=== PATIENT | male | born 1945 | race Caucasian/White ===

== ENCOUNTER 2017-03-24 04:18 | Emergency (ER) | payer MEDICARE ==
[2017-03-24 04:31] VITALS: O2SAT 96
[2017-03-24] MEDS ORDERED: XYLOCAINE 2% Uro-Jet TOP ONE (04:32)
[2017-03-24] MEDS ORDERED: XYLOCAINE 2% Uro-Jet ONE (04:33)
[2017-03-24 04:55] LABS: Bilirubin NEGATIVE (NEGATIVE); Blood TRACE NON-HEM Ery/ul (0-5); COMPLETE URINE MICROSCOPIC? YES; Collection Type CATH; Glucose NEGATIVE (NEGATIVE); Leukocyte Esterase NEGATIVE (NEGATIVE)
[2017-03-24 05:02] LABS: ADD URINE CULTURE? NO (NO)
--- NOTE | 2017-03-24 05:27 | ERPHSYRPT ---
- History of Present Illness Time Seen by Provider: 03/24/17 04:22 Source: patient, family () Exam Limitations: no limitations Patient Subjective Stated Complaint: unable to urinate since 2200 last night. Triage Nursing Assessment: abdomen soft.. non tender. no disteneded bladder palpated. Physician History: FOR THE PAST 6.5 HOURS PT HAS BEEN UNABLE TO URINATE; DENIES CHEST PAIN, SHORTNESS OF AIR, VOMITING, FEVER. Allergies/Adverse Reactions: No Known Drug Allergies Allergy (Unverified 03/24/17 04:43) Home Medications: Paroxetine HCl 20 mg [Paxil 20 MG] 20 mg PO DAILY 03/24/17 [History] Immunizations Up to Date: Yes - Past Medical History Pertinent Past Medical History: Yes Neurological History: Other - Past Surgical History Past Surgical History: No - Social History Smoking Status: Never smoker Drug Use: none Patient Lives Alone: Yes - Review of Systems Constitutional: No Fever Respiratory: No Dyspnea Cardiac: No Chest Pain Abdominal/Gastrointestinal: No Vomiting Genitourinary Symptoms: Urinary Retention All Other Systems: Reviewed and Negative - Nursing Vital Signs Nursing Vital Signs: Initial Vital Signs Pulse Rate 66 03/24/17 04:21 Respiratory Rate 20 03/24/17 04:21 Blood Pressure 167/100 03/24/17 04:21 O2 Sat by Pulse Oximetry 96 03/24/17 04:21 Pain Scale Pain Intensity 5 - Physical Exam General Appearance: alert Eye Exam: PERRL/EOMI Ears, Nose, Throat Exam: pharynx normal Neck Exam: normal inspection Respiratory Exam: lungs clear Cardiovascular Exam: normal heart sounds Gastrointestinal/Abdomen Exam: soft, normal bowel sounds, No tenderness Back Exam: normal range of motion Extremity Exam: normal inspection, No pedal edema Neurologic Exam: alert, cooperative Skin Exam: warm, dry SpO2 Interpretation: normal SpO2: 96 Oxygen Delivery: Room Air - Course Nursing assessment & vital signs reviewed: Yes Ordered Tests: Active Orders 24 hr Category Date Time Status Catheter-[place] [facility] [place] STAT Care 03/24/17 04:25 Active UA W/ MICROSCOPIC Stat Lab 03/24/17 04:42 Completed Medication Summary Discontinued Medications Generic Name Dose Route Start Last Admin Trade Name Freq PRN Reason Stop Dose Admin Lidocaine HCl 200 mg 03/24/17 04:32 03/24/17 04:44 Xylocaine 2% Uro-Jet TOP 03/24/17 04:33 200 mg STAT ONE Administration Lidocaine HCl Confirm 03/24/17 04:33 Xylocaine 2% Uro-Jet Administered 03/24/17 04:34 Dose 200 mg .ROUTE .STK-MED ONE Lab/Rad Data: Laboratory Results 03/24/17 Range/Units 04:42 Ur Collection Type CATH Urine Color YELLOW (YELLOW) Urine Appearance CLEAR (CLEAR) Urine pH 5.0 (5-6) Ur Specific [place] 1.025 (1.005-1.025) Urine Protein NEGATIVE (Negative) Urine Ketones NEGATIVE (NEGATIVE) Urine Blood TRACE NON-HEM (0-5) Juvenal/ul Urine Nitrite NEGATIVE (NEGATIVE) Urine Bilirubin NEGATIVE (NEGATIVE) Urine Urobilinogen NORMAL (0-1) mg/dL Ur Leukocyte Esterase NEGATIVE (NEGATIVE) Urine Microscopic RBC 0-2 (0-2) /HPF Urine Glucose NEGATIVE (NEGATIVE) mg/dL Specimen Received 03-24-17 0455 - Departure Time of Disposition: 05:33 Departure Disposition: Home Clinical Impression: ACUTE URINARY RETENTION Condition: Stable Critical Care Time: No Instructions: Urinary Retention in Men Additional Instructions: FOLLOW UP WITH PRIVATE DOCTOR TOMORROW. FOLLOW UP WITH DR LEWIS(UROLOGIST): CALL [phone] TODAY FOR AN APPOINTMENT. KEEP CATHETER IN WITH LEG BAG UNTIL DR LEWIS IS SEEN.
[2017-03-24 05:38] VITALS: BP 146/85; PULSE 63
== END 2017-03-24 05:56 | disposition home or self-care (01) ==
LOC: ED 04:18
DX: R33.9 Retention of urine, unspecified (principal)
CPT/HCPCS: 51702; 81000; 99284

== ENCOUNTER 2017-03-24 09:00 | Emergency (ER) | payer MEDICARE ==
[2017-03-24] MEDS ORDERED: Sodium Chloride 0.9% 1000 ML 1,000 ML IV SCH (09:15)
--- NOTE | 2017-03-24 09:24 | ERPHSYRPT ---
- History of Present Illness Time Seen by Provider: 03/24/17 09:06 Source: patient, family Exam Limitations: clinical condition (confused) Physician History: patient here last pm for acute urinary retention after being started on Paxil yesterday; took first dose last pm; in ER early am; bhatti anchored for retention and went home with bhatti; got up this am and felt poorly and unsteady on feet; started to bathroom and went down; witnessed; ? loc brief; no seizure; amnestic for event; became pale and diaphoretic; no prior hx; no CP; some heaviness and sob; no cough; no fevr; no travel; no exposure; Witnessed: by family Prior Episodes: single episode today Timing/Duration: today, hour(s) (1), sudden, improved (slightly) Precipitating Factors: unknown (possible new meds and or bhatti cath), lightheadedness Context: standing Loss of Consciousness: brief (seconds) Charcter of event(s): collapsed, confused after event Allergies/Adverse Reactions: No Known Drug Allergies Allergy (Unverified 03/24/17 04:43) Home Medications: Paroxetine HCl 20 mg [Paxil 20 MG] 20 mg PO DAILY 03/24/17 [History] - Past Medical History Pertinent Past Medical History: Yes Neurological History: Other Cardiac History: High Cholesterol, Hypertension History: Other (acute urinary retention last pm) - Past Surgical History Past Surgical History: No - Social History Smoking Status: Never smoker Exposure to second hand smoke: No Alcohol Use: Socially Drug Use: none Patient Lives Alone: Yes Significant Family History: hypertension - Review of Systems Constitutional: Weakness, No Fever, No Night Sweats Eyes: No Symptoms Ears, Nose, & Throat: No Symptoms Respiratory: No Cough, No Cyanosis, No Dyspnea, No Wheezing Cardiac: Syncope (possible brief), No Chest Pain, No Edema, No Palpitations Abdominal/Gastrointestinal: No Abdominal Pain, No Nausea, No Vomiting, No Diarrhea Genitourinary Symptoms: Urinary Retention, No Dysuria, No Hematuria, No Flank Pain Skin: Other (diaphoretic during event), No Cellulitis, No Rash Neurological: Headache, No Focal Weakness, No Paralysis, No Seizure, No Sensory Changes, No Vertigo Psychological: No Symptoms Endocrine: No Symptoms Hematologic/Lymphatic: No Symptoms Immunological/Allergic: No Symptoms Physical Exam - Nursing Vital Signs Nursing Vital Signs: Initial Vital Signs Temperature 97.3 F 03/24/17 09:05 Pulse Rate 56 L 03/24/17 09:05 Respiratory Rate 17 03/24/17 09:05 Blood Pressure 154/63 03/24/17 09:05 O2 Sat by Pulse Oximetry 96 03/24/17 09:05 Pain Scale Pain Intensity 0 - Hollis Coma Scale Best Eye Response (Hollis): (4) open spontaneously Best Verbal Response (Sammi): (5) oriented Best Motor Response (Sammi): (6) obeys commands Sammi Total: 15 - Physical Exam General Appearance: moderate distress, lethargy Eye Exam: bilateral eye: normal inspection, PERRL, EOMI, other (fundi benign; no papiledema) Ears, Nose, Throat Exam: normal ENT inspection, TMs normal, pharynx normal, moist mucous membranes Neck Exam: normal inspection, non-tender, supple, full range of motion, No meningismus, No carotid bruit, No JVD Respiratory: lungs clear, airway intact, diminished breath sounds, No chest tenderness, No respiratory distress, No crackles/rales, No rhonchi, No wheezing Cardiovascular: regular rate/rhythm, normal heart sounds, normal peripheral pulses, bradycardia (54), capillary refill <2 sec, No murmur, No edema, No pulse deficit Gastrointestinal: soft, normal bowel sounds, No tenderness, No mass, No guarding , No pulsatile mass, No rebound, No organomegaly Male Genitalia: other (bhatti cath in place draining urine - good output), No hernia, No testicular tenderness Rectal Exam: deferred Back Exam: normal inspection, normal range of motion, No CVA tenderness Extremity Exam: normal inspection, normal range of motion, No elmo's sign, No pedal edema Peripheral Pulses: carotid (R): 4+, carotid (L): 4+, femoral (R): 4+, femoral (L ): 4+, dorsalis-pedis (R): 3+, dorsalis-pedis (L): 3+ 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, oriented x 3, cooperative, 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 Exam: normal hearing, normal speech, PERRL, tongue midline Motor/Sensory: no motor deficit, no sensory deficit Skin Exam: warm, No normal color (pale), No dry (slightly clammy), No rash, No petechiae, No cyanosis SpO2 Interpretation: normal SpO2: 100 Oxygen Delivery: Room Air - Course Nursing assessment & vital signs reviewed: Yes EKG Interpreted by Me: RATE (54), Sinus Feroz, Left Peel Deviation, NORMAL INTERVALS, NORMAL QRS, NORMAL ST-T Rhythm Strip: Rate (54), Sinus Bradycardia - Radiology Exams Chest X-ray Interpretation: Interpreted by me, Teleradiologist Report, No Pneumonia, No Pneumothorax, Nml Heart Size, No Infiltrates, Other Ordered Tests: Active Orders 24 hr Category Date Time Status Accucheck STAT Care 03/24/17 09:15 Active Senior Contracts Administrator STAT Care 03/24/17 09:16 Active EKG-ER Only STAT Care 03/24/17 09:15 Active IV Insertion STAT Care 03/24/17 09:15 Active Orthostatic Vital Signs STAT Care 03/24/17 09:15 Active Pulse Oximetry (ED) STAT Care 03/24/17 09:15 Active CHEST 1 VIEW (PORTABLE) Stat Exams 03/24/17 09:16 Completed HEAD WITHOUT CONTRAST [CT] Stat Exams 03/24/17 09:32 Completed CBC W DIFF Stat Lab 03/24/17 09:30 Completed CMP Routine Lab 03/24/17 09:30 Completed D-DIMER QUANTITATION Stat Lab 03/24/17 09:30 Completed Lactic Acid Stat Lab 03/24/17 Results MAGNESIUM Routine Lab 03/24/17 09:30 Completed PROTIME WITH INR Stat Lab 03/24/17 09:30 Completed TROPONIN Q3H Lab 03/24/17 09:30 Completed TROPONIN Q3H Lab 03/24/17 12:30 Ordered TROPONIN Q3H Lab 03/24/17 15:30 Ordered TROPONIN Q3H Lab 03/24/17 18:30 Ordered TROPONIN Q3H Lab 03/24/17 21:30 Ordered UA W/RFX UR CULTURE Stat Lab 03/24/17 10:15 Completed Urine Triage Profile Stat Lab 03/24/17 10:15 Completed Medication Summary Generic Name Dose Route Start Last Admin Trade Name Freq PRN Reason Stop Dose Admin Sodium Chloride 1,000 mls @ 100 mls/hr 03/24/17 09:15 03/24/17 09:56 Sodium Chloride 0.9% 1000 Ml IV 04/23/17 09:14 100 mls/hr .Q10H [place] Administration Lab/Rad Data: Laboratory Result Diagrams 03/24/17 09:30 03/24/17 09:30 Laboratory Results 03/24/17 03/24/17 03/24/17 Range/Units Unknown 10:15 10:15 WBC (4.0-10.5) K/mm3 RBC (4.1-5.6) M/mm3 Hgb (12.5-18.0) gm/dl Hct (42-50) % MCV (78-100) fl MCH (26-32) pg MCHC (32-36) g/dl RDW (11.5-14.0) % Plt Count (150-450) K/mm3 MPV (6-9.5) fl Gran % (36.0-66.0) % Lymphocytes % (24.0-44.0) % Monocytes % (0.0-12.0) % Eosinophils % (0.00-5.0) % Basophils % (0.0-0.4) % Basophils # (0-0.4) INR (0.8-3.0) D-Dimer (0-500) ng/mL Sodium (136-145) mEq/L Potassium (3.5-5.1) mEq/L Chloride (98-107) mEq/L Carbon Dioxide (21-32) mEq/L Anion Gap (5-15) MEQ/L BUN (9-20) mg/dL Creatinine (0.55-1.30) mg/dl Estimated GFR ML/MIN Glucose (70-110) MG/DL Lactic Acid 2.0 (0.4-2.0) Calcium (8.5-10.1) mg/dL Magnesium (1.8-2.4) mg/dL Total Bilirubin (0.2-1.0) mg/dL AST (15-37) U/L ALT (12-78) U/L Alkaline Phosphatase (46-116) U/L Troponin I (0.000-0.056) ng/ml Serum Total Protein (6.4-8.2) gm/dL Albumin (3.4-5.0) g/dL Ur Collection Type VOID Urine Color YELLOW (YELLOW) Urine Appearance CLEAR (CLEAR) Urine pH 8.0 (5-6) Ur Specific [place] 1.010 (1.005-1.025) Urine Protein NEGATIVE (Negative) Urine Ketones NEGATIVE (NEGATIVE) Urine Blood 50 (0-5) Juvenal/ul Urine Nitrite NEGATIVE (NEGATIVE) Urine Bilirubin NEGATIVE (NEGATIVE) Urine Urobilinogen NORMAL (0-1) mg/dL Ur Leukocyte Esterase NEGATIVE (NEGATIVE) Urine Glucose NEGATIVE (NEGATIVE) mg/dL Urine Opiates Level NEG. (NEGATIVE) Ur Methadone NEG. (NEGATIVE) Urine Barbiturates NEG. (NEGATIVE) Ur Phencyclidine (PCP) NEG. (NEGATIVE) Urine Amphetamine NEG. (NEGATIVE) U Benzodiazepine Level NEG. (NEGATIVE) Urine Cocaine NEG. (NEGATIVE) Urine Marijuana (THC) NEG. (NEGATIVE) Specimen Received 03/24/17 1015 03/24/17 03/24/17 03/24/17 Range/Units 09:30 09: 09:30 WBC (4.0-10.5) K/mm3 RBC (4.1-5.6) M/mm3 Hgb (12.5-18.0) gm/dl Hct (42-50) % MCV (78-100) fl MCH (26-32) pg MCHC (32-36) g/dl RDW (11.5-14.0) % Plt Count (150-450) K/mm3 MPV (6-9.5) fl Gran % (36.0-66.0) % Lymphocytes % (24.0-44.0) % Monocytes % (0.0-12.0) % Eosinophils % (0.00-5.0) % Basophils % (0.0-0.4) % Basophils # (0-0.4) INR 1.13 (0.8-3.0) D-Dimer 360 (0-500) ng/mL Sodium 140 (136-145) mEq/L Potassium 3.7 (3.5-5.1) mEq/L Chloride 104 (98-107) mEq/L Carbon Dioxide 28.3 (21-32) mEq/L Anion Gap 11.6 (5-15) MEQ/L BUN 12 (9-20) mg/dL Creatinine 1.34 H (0.55-1.30) mg/dl Estimated GFR 56 ML/MIN Glucose 144 H (70-110) MG/DL Lactic Acid (0.4-2.0) Calcium 9.2 (8.5-10.1) mg/dL Magnesium 2.0 (1.8-2.4) mg/dL Total Bilirubin 0.70 (0.2-1.0) mg/dL AST 23 (15-37) U/L ALT 19 (12-78) U/L Alkaline Phosphatase 136 H (46-116) U/L Troponin I < 0.017 (0.000-0.056) ng/ml Serum Total Protein 7.2 (6.4-8.2) gm/dL Albumin 4.1 (3.4-5.0) g/dL Ur Collection Type Urine Color (YELLOW) Urine Appearance (CLEAR) Urine pH (5-6) Ur Specific [place] (1.005-1.025) Urine Protein (Negative) Urine Ketones (NEGATIVE) Urine Blood (0-5) Juvenal/ul Urine Nitrite (NEGATIVE) Urine Bilirubin (NEGATIVE) Urine Urobilinogen (0-1) mg/dL Ur Leukocyte Esterase (NEGATIVE) Urine Glucose (NEGATIVE) mg/dL Urine Opiates Level (NEGATIVE) Ur Methadone (NEGATIVE) Urine Barbiturates (NEGATIVE) Ur Phencyclidine (PCP) (NEGATIVE) Urine Amphetamine (NEGATIVE) U Benzodiazepine Level (NEGATIVE) Urine Cocaine (NEGATIVE) Urine Marijuana (THC) (NEGATIVE) Specimen Received 03/24/17 Range/Units 09:30 WBC 6.5 (4.0-10.5) K/mm3 RBC 4.87 (4.1-5.6) M/mm3 Hgb 15.6 (12.5-18.0) gm/dl Hct 44.7 (42-50) % MCV 91.8 (78-100) fl MCH 32.0 (26-32) pg MCHC 34.9 (32-36) g/dl RDW 12.5 (11.5-14.0) % Plt Count 185 (150-450) K/mm3 MPV 10.7 H (6-9.5) fl Gran % 74.5 H (36.0-66.0) % Lymphocytes % 16.7 L (24.0-44.0) % Monocytes % 7.4 (0.0-12.0) % Eosinophils % 0.9 (0.00-5.0) % Basophils % 0.5 (0.0-0.4) % Basophils # 0.03 (0-0.4) INR (0.8-3.0) D-Dimer (0-500) ng/mL Sodium (136-145) mEq/L Potassium (3.5-5.1) mEq/L Chloride (98-107) mEq/L Carbon Dioxide (21-32) mEq/L Anion Gap (5-15) MEQ/L BUN (9-20) mg/dL Creatinine (0.55-1.30) mg/dl Estimated GFR ML/MIN Glucose (70-110) MG/DL Lactic Acid (0.4-2.0) Calcium (8.5-10.1) mg/dL Magnesium (1.8-2.4) mg/dL Total Bilirubin (0.2-1.0) mg/dL AST (15-37) U/L ALT (12-78) U/L Alkaline Phosphatase (46-116) U/L Troponin I (0.000-0.056) ng/ml Serum Total Protein (6.4-8.2) gm/dL Albumin (3.4-5.0) g/dL Ur Collection Type Urine Color (YELLOW) Urine Appearance (CLEAR) Urine pH (5-6) Ur Specific [place] (1.005-1.025) Urine Protein (Negative) Urine Ketones (NEGATIVE) Urine Blood (0-5) Juvenal/ul Urine Nitrite (NEGATIVE) Urine Bilirubin (NEGATIVE) Urine Urobilinogen (0-1) mg/dL Ur Leukocyte Esterase (NEGATIVE) Urine Glucose (NEGATIVE) mg/dL Urine Opiates Level (NEGATIVE) Ur Methadone (NEGATIVE) Urine Barbiturates (NEGATIVE) Ur Phencyclidine (PCP) (NEGATIVE) Urine Amphetamine (NEGATIVE) U Benzodiazepine Level (NEGATIVE) Urine Cocaine (NEGATIVE) Urine Marijuana (THC) (NEGATIVE) Specimen Received reviewed - Progress Progress: improved (over time), re-examined (after) Progress Note: 03/24/17 09:30 ekg Sinus Feroz; IV started; llabs pending; cxr pending; will get CT monitor and recheck; BS pending; will check urine 03/24/17 09:31 accu check 118 03/24/17 09:38 family at bedside; patient looks and feels better; color back; no diaphoresis; mentally quicker; OSVS done and wnl and tolerated well; will CT head and recheck 03/24/17 10:[address]- resutls pending; patient continues to improve clinically as well; vS good; sats good; CXR ok; CBC ok; other labs pending; will monitor and recheck 03/24/17 10:05 D Dimer wnl so PE rule out 03/24/17 10:06 CT reported as NAD wiht age related atrophy; family and patient notified 03/24/17 10:12 recheck and patient continues to improve; feels normal now; lactic 2.0; BS and Cr up slight; Buun and lytes ok; Trop ok; will discuss treatment plan and give instructions 03/24/17 10:37 ua and INR and tox all neg; will d[facility] Counseled pt/family regarding: lab results, diagnosis, need for follow-up, rad results - Departure Time of Disposition: 10:38 Departure Disposition: Home Clinical Impression: Medication reaction Condition: Stable Critical Care Time: Yes Critical Care Time(excluding separately billable procedures): 30-74 minutes Ref[facility]: [facility] [Primary Care Provider[facility] - Additional Instructions: [facility] before taking [facility] again; continue bhatti; [facility] for [facility] Follow-up with family doctor as directed. Call for appointment. Return if any problems. If you smoke please stop. Call or follow up with your family doctor for assistance if you need it to stop. Please wear your seatbelt when driving. Have a nice day. Thank you for allowing us to participate in your care today. :o) Dr Andres Maradiaga
[2017-03-24 09:36] LABS: BASOPHIL % 0.5 % (0.0-0.4); Eosinophil % 0.9 % (0.00-5.0); Granulocytes % 74.5 % (36.0-66.0); Lymphocytes % 16.7 % (24.0-44.0); Mean Cell Volume 91.8 fl (78-100); Mean Platelet Volume 10.7 fl (6-9.5); Monocytes % 7.4 % (0.0-12.0); Platelet Count 185 K/mm3 (150-450); Red Blood Count 4.87 M/mm3 (4.1-5.6); Red Cell Distribution Width 12.5 % (11.5-14.0); White Blood Count 6.5 K/mm3 (4.0-10.5)
[2017-03-24] MEDS ORDERED: Sodium Chloride 0.9% 1000 ML 1,000 ML ONE (09:55)
--- NOTE | 2017-03-24 09:56 | XRAY ---
Exam: AP upright portable chest film from 0930 hours on 03/24/2017. Comparison: None. Indication: Shortness of breath. Dizziness. Findings: The film was obtained in a lordotic projection. The patient appears to be leaning slightly toward the left. The transverse heart size is normal. Pulmonary vascularity appears within normal limits. I cannot exclude some minimal partial atelectasis at the peripheral left lower lung field. Some costochondral calcification is seen at the anterior margin of the lower ribs on the left. No air space infiltrates, pneumothorax, or pleural fluid is seen. The bones appear grossly intact. Impression: 1. There is some questionable partial subsegmental atelectasis at the peripheral left lower lung field. Otherwise, lung lee appear clear. No other acute cardiopulmonary disease is seen.
--- NOTE | 2017-03-24 10:05 | XRAY ---
Exam: CT of the head without IV contrast from 03/24/2017. CTDI: 50.26 Indication: Fall, hit frontal area of head, complains of dizziness. Comparison: None. Technique: Non-IV contrast axial images were obtained through the head. Reconstructed coronal and sagittal images were created and reviewed. Findings: The ventral poles appear of normal size for age and are midline. No focal mass effect or midline shift is seen. I note small bilateral basal ganglia calcifications. There is no evidence of acute intracranial bleed or abnormal extra-axial fluid collection. Minimal nonspecific periventricular and subcortical white matter changes are seen, likely due to mild small vessel ischemic disease. I see no evidence of acute territorial infarction. There is some prominence of the cortical sulci and basilar cisterns, not inappropriate for the patient's age. The calvarium of the skull reveals no fracture. The extracranial soft tissues appear unremarkable, particularly within the frontal region at the site of trauma. The visualized paranasal sinuses reveal some soft tissue density at the inferior aspect of the right maxillary sinus which I believe is due to mucosal thickening. No paranasal sinus air-fluid levels are seen. The mastoid air cells are well aerated and reveal no opacification or mastoid effusion. Impression: 1. I see no evidence of acute intracranial bleed or other acute intracranial process. 2. Mild age-appropriate atrophic changes and minimal microvascular disease. 3. There appears to be a mild to moderate amount of chronic mucosal thickening at the inferior margin of the right maxillary sinus. The remainder of the paranasal sinuses appears clear. No paranasal sinus air-fluid levels are seen.
[2017-03-24 10:07] LABS: ALBUMIN 4.1 g/dL (3.4-5.0); ALKALINE PHOSPHATASE 136 U/L (46-116); ANION GAP 11.6 MEQ/L (5-15); BLOOD UREA NITROGEN 12 mg/dL (9-20); CHLORIDE 104 mEq/L (98-107); Carbon Dioxide 28.3 mEq/L (21-32); Glucose 144 MG/DL (70-110); Potassium 3.7 mEq/L (3.5-5.1); SGOT/AST 23 U/L (15-37); SGPT/ALT 19 U/L (12-78); SODIUM 140 mEq/L (136-145); Total Protein 7.2 gm/dL (6.4-8.2)
[2017-03-24 10:08] LABS: TROPONIN < 0.017 ng/ml (0.000-0.056)
[2017-03-24 10:25] LABS: INR 1.13 (0.8-3.0); PROTIME 12.6 SECONDS (8.83-12.87)
[2017-03-24 10:29] LABS: Bilirubin NEGATIVE (NEGATIVE); COMPLETE URINE MICROSCOPIC? YES; Collection Type VOID; Glucose NEGATIVE (NEGATIVE); Leukocyte Esterase NEGATIVE (NEGATIVE)
[2017-03-24 10:30] LABS: ADD URINE CULTURE? NO (NO); Blood 50 Ery/ul (0-5)
[2017-03-24 11:41] VITALS: BP 160/97; PULSE 61; O2SAT 99
== END 2017-03-24 11:41 | disposition home or self-care (01) ==
LOC: ED 09:00
DX: T43.225A Adverse effect of selective serotonin reuptake inhibitors, initial encounter (principal); R42 Dizziness and giddiness; R41.0 Disorientation, unspecified; R55 Syncope and collapse; E78.00 Pure hypercholesterolemia, unspecified; I10 Essential (primary) hypertension
CPT/HCPCS: 36000; 36415; 70450; 71010; 80053; 80307; 81002; 82962; 83605; 83735; 84484; 85025; 85379; 85610; 93005; 93041; 96360; 96361; 99284

== ENCOUNTER 2017-03-28 20:33 | Emergency (ER) | payer MEDICARE ==
[2017-03-28 20:51] VITALS: O2SAT 96
--- NOTE | 2017-03-28 20:53 | ERPHSYRPT ---
- History of Present Illness Time Seen by Provider: 03/28/17 20:38 Source: patient, family () Exam Limitations: no limitations Physician History: PT HAD URINARY RETENTION 4 DAYS AGO, CAME TO [facility] ER AND LEFT WITH A DERAS CATHETER AND LEG BAG. THE CATHETER WAS TAKEN OUT YESTERDAY AND PT HAS AN APPOINTMENT WITH DR LEWIS(UROLOGIST) TOMORROW. TONIGHT PT FEELS DISCOMFORT IN HIS PERINEUM AND CONTINUES WITH URINARY HESITATION; DENIES ABDOMINAL PAIN, VOMITING, DIARRHEA, CHEST PAIN, FEVER, SHORTNESS OF AIR, DYSURIA. Allergies/Adverse Reactions: No Known Drug Allergies Allergy (Unverified 03/24/17 04:43) Home Medications: Paroxetine HCl 20 mg [Paxil 20 MG] 20 mg PO DAILY 03/24/17 [History] Hx Tetanus, Diphtheria Vaccination/Date Given: No Hx Influenza Vaccination/Date Given: Yes (2015) Hx Pneumococcal Vaccination/Date Given: Yes - Review of Systems Constitutional: No Fever, No Chills Respiratory: No Dyspnea Cardiac: No Chest Pain Abdominal/Gastrointestinal: No Abdominal Pain, No Vomiting, No Diarrhea Genitourinary Symptoms: Hesitancy, Urinary Retention, Other (PERINEAL DISCOMFORT TONIGHT) All Other Systems: Reviewed and Negative - Past Medical History Pertinent Past Medical History: Yes Neurological History: Other Cardiac History: High Cholesterol, Hypertension History: Other (acute urinary retention last pm) - Past Surgical History Past Surgical History: No - Social History Smoking Status: Never smoker Exposure to second hand smoke: No Alcohol Use: Socially Drug Use: none Patient Lives Alone: Yes Significant Family History: hypertension - Nursing Vital Signs Nursing Vital Signs: Initial Vital Signs Temperature 98.4 F 03/28/17 20:45 Pulse Rate 62 03/28/17 20:45 Respiratory Rate 18 03/28/17 20:45 Blood Pressure 134/77 03/28/17 20:45 O2 Sat by Pulse Oximetry 96 03/28/17 20:45 Pain Scale Pain Intensity 6 - Physical Exam General Appearance: alert Eye Exam: PERRL/EOMI Ears, Nose, Throat Exam: TMs normal, pharynx normal, moist mucous membranes Neck Exam: normal inspection Respiratory Exam: lungs clear Cardiovascular Exam: normal heart sounds Gastrointestinal/Abdomen Exam: soft, normal bowel sounds, No tenderness Male Genitalia Exam: normal genitalia, No testicular tenderness, No penile discharge Back Exam: normal range of motion Extremity Exam: other (NO ANKLE EDEMA) Neurologic Exam: alert, cooperative Skin Exam: warm, dry - Course Nursing assessment & vital signs reviewed: Yes Ordered Tests: Active Orders 24 hr Category Date Time Status UA W/RFX UR CULTURE Stat Lab 03/28/17 21:00 Completed Lab/Rad Data: Laboratory Results 03/28/17 Range/Units 21:00 Ur Collection Type CLEAN CATCH Urine Color YELLOW (YELLOW) Urine Appearance CLEAR (CLEAR) Urine pH 5.0 (5-6) Ur Specific [place] 1.015 (1.005-1.025) Urine Protein NEGATIVE (Negative) Urine Ketones NEGATIVE (NEGATIVE) Urine Blood NEGATIVE (0-5) Juvenal/ul Urine Nitrite NEGATIVE (NEGATIVE) Urine Bilirubin NEGATIVE (NEGATIVE) Urine Urobilinogen NORMAL (0-1) mg/dL Ur Leukocyte Esterase NEGATIVE (NEGATIVE) Urine Glucose NEGATIVE (NEGATIVE) mg/dL Specimen Received 03/28/17 2100 - Departure Time of Disposition: 22:33 Departure Disposition: Home Clinical Impression: URINARY HESITANCY Condition: Stable Critical Care Time: No [facility]: [facility] [[facility] - Instructions: Urinary Retention in Men Additional Instructions: FOLLOW UP WITH DR LEWIS TOMORROW PRE-SCHEDULED.
[2017-03-28 22:18] VITALS: BP 159/90; PULSE 68
[2017-03-28 22:28] LABS: ADD URINE CULTURE? NO (NO); Bilirubin NEGATIVE (NEGATIVE); Blood NEGATIVE Ery/ul (0-5); COMPLETE URINE MICROSCOPIC? NO; Collection Type CLEAN CATCH; Glucose NEGATIVE (NEGATIVE); Leukocyte Esterase NEGATIVE (NEGATIVE)
[2017-03-30 06:01] LABS: Prostate Specific Antigen 0.61 ng/mL (<=6.50)
== END 2017-03-28 22:38 | disposition home or self-care (01) ==
LOC: ED 20:33
DX: R39.11 Hesitancy of micturition (principal); E78.00 Pure hypercholesterolemia, unspecified; I10 Essential (primary) hypertension
CPT/HCPCS: 36415; 81002; 84153; 84154; 99282

== ENCOUNTER 2020-06-14 11:11 | Emergency (ER) | payer MEDICARE ==
[2020-06-14] MEDS ORDERED: Sodium Chloride 0.9% 1000 ML 1,000 ML IV STA (11:35)
[2020-06-14 11:48] LABS: Absolute Neutrophil Ct (ANC) 7.59 (1.4-6.9); BASOPHIL % 0.4 % (0.0-0.4); Basophil (Absolute #) 0.04 (0-0.4); Eosinophil % 3.9 % (0.00-5.0); Hematocrit 44.8 % (42-50); Hemoglobin 14.8 gm/dl (12.5-18.0); Lymphocyte (Absolute #) 1.18 (1.0-4.6); Lymphocytes % 11.5 % (24.0-44.0); Mean Cell Volume 95.5 fl (78-100); Mean Corpuscular Hemoglobin 31.6 pg (26-32); Mean Platelet Volume 10.6 fl (7.5-11.0); Monocyte (Absolute #) 1.08 (0.0-1.3); Monocytes % 10.5 % (0.0-12.0); Neutrophil % 73.7 % (36.0-66.0); Platelet Count 160 K/mm3 (150-450); Red Blood Count 4.69 M/mm3 (4.1-5.6); Red Cell Distribution Width 12.7 % (11.5-14.0); White Blood Count 10.3 K/mm3 (4.0-10.5)
--- NOTE | 2020-06-14 11:48 | ERPHSYRPT ---
- History of Present Illness Time Seen by Provider: 06/14/20 11:46 Source: patient, family Exam Limitations: no limitations Patient Subjective Stated Complaint: Pt was at [employer] and had a syncopal episode, it tood approx 5 minutes to get him up to his feet, pt was diaphoretic and nauseous, pt had an episode last week of chest pain but refused to come to the ER Triage Nursing Assessment: Pt brought to the ER by his , vitals wnl, denies pain, denies him hitting his head when he loss consciousness, skin n/w/d, alert to name and place only, states that he has mild alzheimers, doesn't appear to be in any distress Physician History: Pt was at [employer] and had a syncopal episode, it stood approximately 5 minutes to get him up to his feet, pt was diaphoretic and nauseous, patient had an episode last week of chest pain but refused to come to the ER states that he has mild alzheimers, patient is denying any other symptoms. Timing/Duration: today Character of Deficits: none Deficits: no difficulties Baseline/Normal Cognition: alert oriented x 3 Current Cognition: alert oriented x 3 Associated Symptoms: denies symptoms Allergies/Adverse Reactions: No Known Drug Allergies Allergy (Verified 06/14/20 11:28) Home Medications: Paroxetine HCl 20 mg [Paxil 20 MG] 20 mg PO DAILY 03/24/17 [History] Atorvastatin Calcium [Lipitor] 5 mg PO DAILY 06/14/20 [History] Tamsulosin HCl 0.4 mg [Flomax 0.4 MG] 0.4 mg PO DAILY 06/14/20 [History] Hx Tetanus, Diphtheria Vaccination/Date Given: No Hx Influenza Vaccination/Date Given: Yes (2015) Hx Pneumococcal Vaccination/Date Given: Yes Travel Risk - International Travel Have you traveled outside of the country in past 3 weeks: No - Coronavirus Screening Are you exhibiting any of the following symptoms?: No Close contact with a COVID-19 positive Pt in past 14-21 Days: No - Review of Systems Constitutional: No Fever, No Chills Eyes: No Symptoms Ears, Nose, & Throat: No Symptoms Respiratory: No Cough, No Dyspnea Cardiac: No Chest Pain, No Edema, No Syncope Abdominal/Gastrointestinal: No Abdominal Pain, No Nausea, No Vomiting, No Diarrhea Genitourinary Symptoms: No Dysuria Musculoskeletal: No Back Pain, No Neck Pain Skin: No Rash Neurological: No Dizziness, No Focal Weakness, No Sensory Changes Psychological: No Symptoms Endocrine: No Symptoms All Other Systems: Reviewed and Negative - Past Medical History Pertinent Past Medical History: Yes Neurological History: Other Cardiac History: High Cholesterol, Hypertension History: Other - Past Surgical History Past Surgical History: No - Social History Smoking Status: Never smoker Exposure to second hand smoke: No Alcohol Use: Socially Drug Use: none Patient Lives Alone: No Significant Family History: hypertension - Nursing Vital Signs Nursing Vital Signs: Initial Vital Signs Temperature 97.8 F 06/14/20 11:15 Pulse Rate 78 06/14/20 11:15 Respiratory Rate 22 06/14/20 11:15 Blood Pressure 131/84 06/14/20 11:15 O2 Sat by Pulse Oximetry 98 06/14/20 11:15 Pain Scale Pain Intensity 0 - [place] Coma Scale Best Eye Response ([place]): (4) open spontaneously Best Verbal Response ([place]): (5) oriented Best Motor Response ([place]): (6) obeys commands Sammi Total: 15 - Physical Exam General Appearance: no apparent distress, alert Eye Exam: bilateral eye: PERRL, EOMI Ears, Nose, Throat Exam: normal ENT inspection, moist mucous membranes Neck Exam: normal inspection, non-tender, supple Respiratory: normal breath sounds, lungs clear, airway intact, No respiratory distress Cardiovascular: regular rate/rhythm, No edema Gastrointestinal: soft, No tenderness, No distention Back Exam: normal inspection Extremity Exam: normal inspection, No pedal edema 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, 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: 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 Coordination/Gait: normal finger to nose, normal gait Skin Exam: normal color, warm, dry, No rash SpO2: 98 - Course Nursing assessment & vital signs reviewed: Yes - CT Exams Head CT Interpretation: Tele-radiologist Report (no stroke) Ordered Tests: Active Orders 24 hr Category Date Time Status EKG-ER Only STAT Care 06/14/20 11:35 Active IV Insertion STAT Care 06/14/20 11:42 Active Orthostatic Vital Signs STAT Care 06/14/20 11:35 Active HEAD WITHOUT CONTRAST [CT] Stat Exams 06/14/20 11:35 Taken CBC W DIFF Stat Lab 06/14/20 11:35 Completed CMP Stat Lab 06/14/20 11:35 Completed TROPONIN Stat Lab 06/14/20 11:35 Completed Medication Summary Discontinued Medications Generic Name Dose Route Start Last Admin Trade Name Tamiko PRN Reason Stop Dose Admin Sodium Chloride 1,000 mls @ 999 mls/hr 06/14/20 11:35 06/14/20 11:55 Sodium Chloride 0.9% 1000 Ml IV 06/14/20 12:35 999 mls/hr .Q1H1M STA Administration Sodium Chloride Confirm 06/14/20 11:54 Sodium Chloride 0.9% 1000 Ml Administered 06/14/20 11:55 Dose 1,000 mls @ ud .ROUTE .STK-MED ONE Lab/Rad Data: Laboratory Result Diagrams 06/14/20 11:35 06/14/20 11:35 Laboratory Results 06/14/20 06/14/20 06/14/20 Range/Units 11:35 11:35 11:35 WBC 10.3 (4.0-10.5) K/mm3 RBC 4.69 (4.1-5.6) M/mm3 Hgb 14.8 (12.5-18.0) gm/dl Hct 44.8 (42-50) % MCV 95.5 (78-100) fl MCH 31.6 (26-32) pg MCHC 33.0 (32-36) g/dl RDW 12.7 (11.5-14.0) % Plt Count 160 (150-450) K/mm3 MPV 10.6 (7.5-11.0) fl Gran % 73.7 H (36.0-66.0) % Eos # (Auto) 0.40 (0-0.5) Absolute Lymphs (auto) 1.18 (1.0-4.6) Absolute Monos (auto) 1.08 (0.0-1.3) Lymphocytes % 11.5 L (24.0-44.0) % Monocytes % 10.5 (0.0-12.0) % Eosinophils % 3.9 (0.00-5.0) % Basophils % 0.4 (0.0-0.4) % Absolute Granulocytes 7.59 H (1.4-6.9) Basophils # 0.04 (0-0.4) Sodium 138 (137-145) mmol/L Potassium 3.8 (3.5-5.1) mmol/L Chloride 101 (98-107) mmol/L Carbon Dioxide 32 H (22-30) mmol/L Anion Gap 8.8 (5-15) MEQ/L BUN 20 (9-20) mg/dL Creatinine 1.62 H (0.66-1.25) mg/dL Estimated GFR 44.6 ML/MIN Glucose 98 (74-106) mg/dL Calcium 9.5 (8.4-10.2) mg/dL Total Bilirubin 0.70 (0.2-1.3) mg/dL AST 22 (17-59) U/L ALT 18 (0-50) U/L Alkaline Phosphatase 97 (38-126) U/L Troponin I < 0.012 (0.000-0.034) ng/mL Serum Total Protein 7.1 (6.3-8.2) g/dL Albumin 4.2 (3.5-5.0) g/dL - Progress Progress: improved Progress Note: 06/14/20 patient has 6 runs of V. tach without any significant symptoms at all. Patient was given rhythm strip and advised to follow-up with [facility] cardiology service for further intervention Counseled pt/family regarding: lab results, diagnosis, need for follow-up, rad results - Departure Departure Disposition: Home Clinical Impression: Syncope with normal neurologic examination, Arrhythmia, ventricular Hypertension Qualifiers: Hypertension type: essential hypertension Qualified Code(s): I10 - Essential (primary) hypertension Condition: Stable Critical Care Time: Yes Critical Care Time(excluding separately billable procedures): Critical 30-74 mins Referrals: [facility] [Primary Care Provider] - Follow Up with PCP/3 days Instructions: Syncope (Fainting) (DC) Additional Instructions: Discharge/Care Plan COURTNEY SCOTT was seen on 06/14/20 in the Emergency Room. The patient was counseled regarding Diagnosis,Lab results, Imaging studies, need for follow up and when to return to the Emergency Room. Prescriptions given: Discharge Note I have spoken with the patient and/or caregivers. I have explained the patient's condition, diagnosis and treatment plan based on the information available to me at this time. I have answered the patient's and/or caregiver's questions and addressed any concerns. The patient and/or caregivers have as good understanding of the patient's diagnosis, condition and treatment plan as can be expected at this point. The vital signs have been stable. The patient's condition is stable and appropriate for discharge from the emergency department. The patient will pursue further outpatient evaluation with the primary care ph ysician or other designated or consulting physician as outlined in the discharge instructions. The patient and/or caregivers are agreeable to this plan of care and follow-up instructions have been explained in detail. The patient and/or caregivers have received these instruction. The patient/and or caregivers are aware that any significant change in condition or worsening of symptoms should prompt an immediate return to this or the closest emergency department or call 911. COURTNEY SCOTT was seen on 06/14/20 n the Emergency Room. At that time you were treated for an emergent condition, during your visit Laboratory, Radiology and/or other procedures may have been ordered. It is very important that you follow-up with your Primary Care Physician [facility] within the next 24-48 hours to review your Emergency Room visit and the final results of testing that was ordered. Some test results such as Urine Cultures, Blood Cultures, and other cultures if ordered will not be finalized for 24-48 hours. If you do not have a Primary Care Provider please call the medical records department at [phone] ext [phone] to obtain a copy of your results or you may sign into our patient portal to obtain these results by visiting us @ [email or web address] and completing the following steps: 1. Click on the Patient Portal link 2. Click the Patient Self Enrollment Link to complete the enrollment form and entering your 3. Once the enrollment form is completed you will receive an email with a temporary ID and password at the email address you provided. 4. Next choose a user name and password. Your user name must be at least 4 characters long and your password must be at least 4 characters long. 5. Choose a security question from the list and provide your answer to the question. If you already have signed into the Health Portal you may access your Health Care Information 16/01 by the following steps: 1. Login to our website @ [email or web address] 2. Enter your original user name and password. FAQS The [facility] Portal is an online tool that contains your Lab Results, Radiology Reports, Visit History, Discharge Instructions and Health Summary Lab and Radiology Results will not be available for 72 hours on the portal. The Portal is a secure site, passwords are encryted and URLs are re-written so they cannot be copied and pasted. You and authorized family members are the only ones who can access your Portal. Also there is a timeout feature that protects your information if you leave the Portal page open. If you have technical difficulty please use the Contact Us link on the page this will allow you to submit any questions you have regarding the Portal or you may contact the Medical Record Department at [phone] ext [phone]. Prescriptions: Chlorthalidone 25 mg PO QAM 30 Days #30 tablet
[2020-06-14] MEDS ORDERED: Sodium Chloride 0.9% 1000 ML 1,000 ML ONE (11:54)
[2020-06-14 12:03] LABS: ALBUMIN 4.2 g/dL (3.5-5.0); ANION GAP 8.8 MEQ/L (5-15); BILIRUBIN,TOTAL 0.7 mg/dL (0.2-1.3); Calcium 9.5 mg/dL (8.4-10.2); Creatinine 1 1.62 mg/dL (0.66-1.25); EST GLOMERULAR FILTRATION RATE 44.6 ML/MIN; Potassium 3.8 mmol/L (3.5-5.1); Total Protein 7.1 g/dL (6.3-8.2)
[2020-06-14 13:01] VITALS: BP 147/89; PULSE 74; O2SAT 96
--- NOTE | 2020-06-14 19:19 | XRAY ---
Indication: Syncope. Multiple contiguous axial images obtained through the head without contrast. Comparison: March 24, 2017 Again age-appropriate global atrophy and minimal periventricular degenerative micro-ischemia. No acute intracranial hemorrhage, abnormal extra-axial fluid collection, or mass effect. Fourth ventricle is midline without hydrocephalus. Bony calvarium intact. Mild mucosal thickening both maxillary sinuses inferiorly. Remaining visualized paranasal sinuses and mastoid air cells are clear. Impression: Nonacute senile brain with incidental paranasal sinus disease. Comment: Preliminary interpretation was made by [facility]. No critical discrepancy.
== END 2020-06-14 13:07 | disposition home or self-care (01) ==
LOC: ED 11:11
DX: R55 Syncope and collapse (principal); I10 Essential (primary) hypertension
CPT/HCPCS: 36000; 36415; 70450; 80053; 84484; 85025; 93005; 96360; 99284; 99291

== ENCOUNTER 2021-02-11 11:18 | Emergency (ER) | payer MEDICARE, SELFPAY | END 2021-02-11 11:45 | disposition left against medical advice (07) | LOC: ED 11:18 | DX: Z53.21 Procedure and treatment not carried out due to patient leaving prior to being seen by health care provider (principal) | CPT/HCPCS: 99281; G0463 ==